=== PATIENT | male | born 1995 | race Caucasian/White ===

== ENCOUNTER 2016-05-22 11:56 | Emergency (ER) | payer BC ==
[2016-05-22 12:44] VITALS: BP 129/61
--- NOTE | 2016-05-22 14:35 | UC ---
FLU HPI - HPI Summary HPI Summary: PATIENT ARRIVES TO WITH CC OF FATIGUE X 4 DAYS. HE STATES HE HAS HAD CHILLS , SWEATS, FATIGUE AND PROBABLE FEVERS BUT HAS NOT CHECKED. HIS ROOMMATE WAS RECENTLY DIAGNOSED WITH STREP THROAT. HE ENDORSES SORE THROAT, BUT STATES THE FATIGUE IS BOTHERING HIM THE MOST. HE ENDORSES SICK CONTACTS AND DENIES FLU SHOT. HE WOULD LIKE A NOTE FOR SCHOOL. PATIENT IS OTHERWISE HEALTHY AND TAKES NO MEDICATIONS. - History of Current Complaint Chief Complaint: UCRespiratory Stated Complaint: BODY ACHES,SORE THROAT,FEVER Time Seen by Provider: 05/22/16 14:03 Hx Obtained From: Patient Onset/Duration: Sudden Onset Severity Currently: Moderate Severity Initially: Moderate Pain Intensity: 1 Pain Scale Used: 0-10 Numeric Associated Signs & Symptoms: Positive: Fever, T Max - UNKNOWN, F/C, Myalgia, Sore Throat, Headache Related Hx: Possible Flu/Infectious Exposure - Risk Factors Influenza Risk Factors: Negative - Allergy/Home Medications Allergies/Adverse Reactions: Allergies Allergy/AdvReac Type Severity Reaction Status Date / Time No Known Allergies Allergy Verified 05/22/16 12:44 Home Medications: Home Medications [id number] W/ APAP [Mucinex Fast-Max Cold Flu] 1 tab PO Q6H 05/22/16 [ History Confirmed 05/22/16] PMH/Surg Hx/FS Hx/Imm Hx Previously Healthy: Yes - Surgical History Surgical History: Yes Surgery Procedure, Year, and Place: Left ACL 2010 - Family History Known Family History: Positive: Unknown - Social History Occupation: Student Lives: With Family Alcohol Use: Weekly Substance Use Type: Cocaine Smoking Status (MU): Current Some Day Smoker Type: Cigarettes Review of Systems Constitutional: Fever, Chills, Fatigue Skin: Negative Eyes: Negative ENT: Sore Throat Respiratory: Negative Cardiovascular: Negative Gastrointestinal: Negative Neurovascular: Negative Musculoskeletal: Negative Neurological: Headache Psychological: Negative All Other Systems Reviewed And Are Negative: Yes Physical Exam Triage Information Reviewed: Yes Appearance: Well-Appearing, No Pain Distress, Well-Nourished Vital Signs: Initial Vital Signs Temp 98.5 F 05/22/16 12:37 Pulse 87 05/22/16 12:37 Resp 18 05/22/16 12:37 BP 129/61 05/22/16 12:37 Pulse Ox 99 05/22/16 12:37 Vital Signs Reviewed: Yes Eye Exam: Normal Eyes: Positive: Conjunctiva Clear ENT Exam: Normal ENT: Positive: Pharynx normal, TMs normal Dental Exam: Normal Neck exam: Normal Neck: Positive: Supple, Nontender, No Lymphadenopathy Respiratory Exam: Normal Respiratory: Positive: Chest non-tender, Lungs clear Cardiovascular Exam: Normal Cardiovascular: Positive: RRR Musculoskeletal Exam: Normal Musculoskeletal: Positive: Strength Intact Neurological Exam: Normal Neurological: Positive: Alert Psychological Exam: Normal Psychological: Positive: Normal Response To Family Skin Exam: Normal Flu Course/Dx - Course Course Of Treatment: PATIENT LIKELY HAS VIRAL ILLNESS. CHILLS, MYALGIAS, SWEATS AND FATIGUE. ENDORSES SICK CONTACTS INCLUDING HIS ROOMMATE WHO RECENTLY WAS DX WITH STREP THROAT. PATIENT IS AFEBRILE ON ARRIVAL AND ALL VS WNL. DENIES CHEST PRESSURE OR PAIN, SOB, URINARY SYMPTOMS, N/V/C/D AND ABDOMINAL PAIN. STREP NEGATIVE. EDUCATED PATIENT ON POSSIBLE FLU AND OFFERED FLU SWAB. PATIENT DECLINED THIS WILL NOT CHANGE THE COURSE OF TREATMENT. - Differential Dx/Diagnosis Differential Diagnosis/HQI/PQRI: Influenza, Pneumonia, Upper Respiratory Infection Provider Diagnoses: VIRAL SYNDROME Discharge - Discharge Plan Condition: Stable Disposition: HOME Patient Education Materials: Viral Syndrome (ED) Forms: *School Release Referrals: No Primary Care Phys,NOPCP [Primary Care Provider] - Additional Instructions: HUMIDIFIER IN THE HOME WILL HELP TYLENOL FOR TEMPS > 100.5 FOLLOW UP WITH PCP ORE RETURN IF SYMPTOMS HAVE NOT IMPROVED BY THURSDAY DRINK 1 GLASS OF GATORADE FOR EVERY GLASS OF WATER REST
== END 2016-05-22 14:35 | disposition home or self-care (01) ==
LOC: UCCORT 11:56
DX: B34.9 Viral infection, unspecified (principal); Z72.0 Tobacco use
CPT/HCPCS: 87651; 99201; G0463